=== PATIENT | male | born 1985 | race Caucasian/White ===

== ENCOUNTER → 2016-10-20 | Outpatient (CLI) | payer OTHER | LOC: RAD 14:28 | DX: M54.6 Pain in thoracic spine (principal) | CPT/HCPCS: 72072 ==

== ENCOUNTER → 2016-11-26 | Outpatient (CLI) | payer OTHER | LOC: KOH-I 14:56 | DX: M54.5 Low back pain (principal); M51.35 Other intervertebral disc degeneration, thoracolumbar region | CPT/HCPCS: 72110 ==

== ENCOUNTER 2016-11-30 01:18 | Emergency (ER) | payer OTHER | END 2016-11-30 04:15 | disposition home or self-care (01) | LOC: ER1 01:18 | DX: M54.5 Low back pain (principal); Z88.8 Allergy status to other drugs, medicaments and biological substances | CPT/HCPCS: 96372; 99283; J1885 ==